=== PATIENT | female | born 1965 | race Caucasian/White ===

== ENCOUNTER → 2025-02-05 10:29 | Outpatient (BNVA) | payer OTHER, SELFPAY | PROVIDERS: PCP Physician Assistant; Referring Provider Physician Assistant; Visit Provider Internal Medicine Cardiovascular Disease | DX: R07.9 Chest pain, unspecified (principal) | CPT/HCPCS: 93005 ==

== ENCOUNTER 2025-03-26 15:56 | Outpatient (CLI) | payer OTHER, SELFPAY ==
--- NOTE | 2025-03-26 16:15 | CT_ITS ---
WS: [id number] CT angio chest 11841 REASON FOR EXAM: ascending aorta dilation TECHNIQUE: Coronal and sagittal 2-D and MIP reformations. IV CONTRAST ADMINISTERED: 100 mL of Omnipaque 350. TECHNIQUE: Multiple axial images postcontrast with coronal and sagittal reconstructions. No comparison examination. The ascending aorta at the level of the main pulmonary artery has a maximum diameter 4.8 cm. TOTAL EXAM DLP: 516.[address] scans at [facility] use at least one of these dose optimization techniques: automated exposure control; mA and/or kV adjustment per patient size (includes targeted exams where dose is matched to clinical indication); or iterative reconstruction. FINDINGS: The ascending aorta at the level of the main pulmonary artery has a maximum diameter 4.8 cm. The aortic arch has a maximum diameter of 3 cm. Maximum diameter of the descending thoracic aorta 3.2 cm. No hilar or mediastinal mass or adenopathy. No lung nodule or lung mass. No other lung opacities. Normal pleura. Mild degenerative spondylosis in the thoracic spine. CT/CT angio chest 41702 IMPRESSION: Mild aneurysmal dilatation of the ascending aorta as above.
[2025-03-26] MEDS: iohexol 350 mg/mL 500 mL Btl (per mL) IV (16:22)
== END 2025-03-26 15:57 | disposition home or self-care (01) ==
LOC: RAD 15:57
PROVIDERS: PCP Physician Assistant; Visit Provider Internal Medicine Cardiovascular Disease
DX: I77.89 Other specified disorders of arteries and arterioles (principal); I71.21 Aneurysm of the ascending aorta, without rupture; M47.814 Spondylosis without myelopathy or radiculopathy, thoracic region
CPT/HCPCS: 71275

== ENCOUNTER 2025-04-02 10:00 | Outpatient (CLI) | payer OTHER, SELFPAY ==
[2025-04-02 12:39] LABS: Anion Gap 12.5 (5-19); Blood Urea Nitrogen 19 mg/dL (6-20); Calcium 9.3 mg/dL (8.5-10.5); Carbon Dioxide 32 mmol/L (22-29); Chloride 99 mmol/L (98-107); Glucose 78 mg/dL (65-115); Osmolality Calculated 289 mOsm/kg (285-295); Potassium 4.5 mmol/L (3.5-5.1); Sodium 139 mmol/L (136-145)
== END 2025-04-02 10:01 | disposition home or self-care (01) ==
LOC: LAB 10:02
PROVIDERS: PCP Physician Assistant; Visit Provider Internal Medicine Cardiovascular Disease
DX: Z79.899 Other long term (current) drug therapy (principal)
CPT/HCPCS: 36415; 80048

== ENCOUNTER 2025-05-01 06:01 | Outpatient (CLI) | payer OTHER, SELFPAY ==
--- NOTE | 2025-05-01 06:15 | USCV_ITS ---
Mary Bishop Age: 59 Gender: F : 1965 Exam Date: 05/01/2025 06:24 Ordering Phys: Julio César Wong MD ([email or web address]) Technologist: Exam Location: [facility] [place] Indication: cp sob BP: 120 / 70 HR: 72 Rhythm: Sinus Technical Quality: Adequate MEASUREMENTS (Male / Female) Normal Values 2D ECHO LV Diastolic Diameter PLAX 4.3 cm 4.2 - 5.9 / 3.9 - 5.3 cm IVS Diastolic Thickness 1.4 cm 0.6 - 1.0 / 0.6 - 0.9 cm IVS Systolic Thickness 2.0 cm LVPW Diastolic Thickness 1.3 cm 0.6 - 1.0 / 0.6 - 0.9 cm LVPW Systolic Thickness 1.7 cm LVOT Diameter 2.0 cm LV Ejection Fraction 2D Teich 63.9 % LV Ejection Fraction MOD 4C 59.6 % LV Ejection Fraction MOD 2C 69.4 % LV Ejection Fraction 2C AL 68.6 % LA Diameter 3.1 cm RA Systolic Volume 4C AL 43.8 ml RA Systolic Volume 4C MOD 43.3 ml LA Sys Volume AL 42.3 cm cubed LA Sys Volume Index AL 21.7 cm cubed/m squared Aorta at Sinotubular Diameter 3.5 cm IVC Diameter 1.4 cm M-MODE LA Ao Ratio MM 1.1 AV Cusp Separation MM 2.4 cm DOPPLER AV Peak Velocity 174.5 cm/s LVOT Peak Velocity 99.0 cm/s AV Area Cont Eq vti 1.8 cm squared AV Area Cont Eq pk 1.8 cm squared MV Peak Velocity 106.0 cm/s MV Area PHT 5.2 cm squared Mitral E to A Ratio 0.6 TV Peak Velocity 175.5 cm/s TR Peak Velocity 195.0 cm/s TR Peak Gradient 15.2 mmHg TV Peak E Velocity 88.0 cm/s PV Peak Velocity 85.0 cm/s FINDINGS Left Ventricle Normal left ventricular cavity size and systolic function, EF 64%. Mild concentric left ventricular hypertrophy. Normal left ventricular diastolic function. Right Ventricle Normal right ventricular size and systolic function. Right Atrium Normal right atrial size. Left Atrium Normal left atrial size. IA Septum Normal appearance of the interatrial septum. Mitral Valve Normal mitral valve structure. No mitral valve stenosis or regurgitation. Aortic Valve Aortic valve not well-visualized. No aortic valve stenosis. Mild aortic valve regurgitation. Tricuspid Valve Normal tricuspid valve structure. No tricuspid valve stenosis or regurgitation. Normal pulmonary pressure. Pulmonic Valve Normal pulmonic valve structure. No pulmonic valve stenosis or regurgitation. Pericardium No pericardial effusion. Aorta Normal diameter of the aortic root and ascending thoracic aorta. IVC Normal IVC diameter. CONCLUSIONS Normal left ventricular cavity size and systolic function, EF 64%. Mild concentric left ventricular hypertrophy. Normal right ventricular size and systolic function. Aortic valve not well-visualized. No aortic valve stenosis. Mild aortic valve regurgitation. Julio César Wong MD, FACC (Electronically Signed) Final Date: 06 May 2025 19:25 S
== END 2025-05-01 06:02 | disposition home or self-care (01) ==
PROVIDERS: Absent Provider Surgery; PCP Physician Assistant; Visit Provider Internal Medicine Cardiovascular Disease
DX: I77.89 Other specified disorders of arteries and arterioles (principal); I51.7 Cardiomegaly; I35.1 Nonrheumatic aortic (valve) insufficiency
CPT/HCPCS: 93306